=== PATIENT | male | born 1955 | race Caucasian/White ===

== ENCOUNTER → 2017-10-26 | Outpatient (CLI) | payer BC | LOC: BMCIMAGING 09:34 | PROVIDERS: ATTEND Family Medicine | DX: M79.645 Pain in left finger(s) (principal) ==

== ENCOUNTER → 2017-12-25 | Outpatient (CLI) | payer BC | LOC: BMCIMAGING 08:42 | PROVIDERS: ATTEND Internal Medicine | DX: R05 Cough (principal) ==